=== PATIENT | female | born 1980 | race African-American/Black ===

== ENCOUNTER 2021-05-13 18:57 | Emergency (ER) | payer BC, SELFPAY ==
[2021-05-13 19:07] VITALS: BP 180/90; PULSE 100; RESP 18; TEMP 36.7; O2SAT 100; BMI 41.9
--- NOTE | 2021-05-13 22:18 | ED.GENADULT ---
HPI - General Adult General Chief complaint: General Medical Stated complaint: Alergic Reaction Time Seen by Provider: 05/13/21 21:53 Source: patient Mode of arrival: ambulatory History of Present Illness HPI narrative: 40-year-old female with history of hypertension presents with adverse reaction to Delta 8 gum he is that she purchased online. Patient states that she chronically has some difficulty with sleeping and was concerned that she may be ?addicted to Benadryl? so she was looking for a ?natural? method to manage her insomnia. She states that couple of hours after she took a single gummy she began feeling tingly and anxious throughout her entire body. Patient that she has gradually begun her and otherwise denies any fever, chills, GI or symptoms, chest pain/shortness of breath or facial/lip/tongue swelling. Related Data Previous Rx's Medication Instructions Recorded hydrochlorothiazide 25 mg tablet 25 mg PO DAILY #14 tab 05/13/21 Allergies Allergy/AdvReac Type Severity Reaction Status Date / Time No Known Allergies Allergy Verified 05/13/21 19:07 Review of Systems Review of Systems: Pertinent positives and negatives as stated in HPI 10 point review of systems is otherwise negative. PMFSH Past Medical History Source: nursing notes reviewed Medical History HTN (hypertension) Social History Social History Advance Directives: No Advance Directives Information Provided: Yes Physical Exam Vital Signs: Vital Signs: Last Vital Signs Temp 98.1 F 05/13/21 19:07 Pulse 100 05/13/21 19:07 Resp 18 05/13/21 19:07 BP 180/90 H 05/13/21 19:07 Pulse Ox 100 05/13/21 19:07 BMI result Body Mass Index 41.9 VITAL SIGNS: Reviewed. GENERAL: Well developed, well nourished, in no acute distress. HEAD: Normocephalic/atraumatic EYES: PERRLA, EOMI OROPHARYNX: no oral lesions noted, posterior pharynx clear, no facial/lips/ LUNGS: Normal breath sounds. No adventitious sounds or accessory muscle use. SpO2<100> CARDIOVASCULAR: Regular rate and rhythm without noted murmurs ABDOMEN: Soft, non-tender, non-distended with bowel sounds. SKIN: Inspection of the skin reveals no rashes NEUROLOGIC: Alert and oriented x 4. Strength and sensation to light touch were grossly intact x 4, no facial asymmetry, no pronator drift, cranial nerves 2-12 grossly intact. Course Course Course Narrative: 40-year-old female with history and clinical presentation consistent with adverse reaction to online medication meant to help sleep without concerns for airway/breathing/circulation at this time. Patient is noted to feel improved, had stated that she was running out of medication and was provided with hydrochlorothiazide (her prescribed medications) as well as a Benadryl. Patient is otherwise discharged home in stable condition with instructions to follow-up with primary care provider as scheduled for discussion regarding possible prescription for marijuana to assist her in sleep as well as renewal of her blood pressure medication. Discharge Plan Discharge Clinical Impression: Adverse effect of [id number] medication, Hypertension Patient Disposition: Home, Self-Care Instructions: Adverse Drug Reaction (ED), DASH Eating Plan (ED), Hypertension (ED) Additional Instructions: 1. Resume all home medications as prescribed. 2. Follow-up with your primary care provider as scheduled. Prescriptions: New hydrochlorothiazide 25 mg tablet 25 mg PO DAILY Qty: 14 0RF Referrals: Denisse Kowalski MD [Primary Care Provider] - 2 days
[2021-05-13] MEDS: diphenhydrAMINE HCL 25 MG TABLET PO (22:38)
[2021-05-13] MEDS: hydroCHLOROthiazide 25 MG TABLET PO (22:38)
[2021-05-13 23:24] VITALS: BP 146/88; PULSE 88; RESP 16; O2SAT 98
== END 2021-05-13 23:30 | disposition home or self-care (01) ==
PROVIDERS: Emergency Provider Student in an Organized Health Care Education/Training Program; PCP Internal Medicine
DX: L50.0 Allergic urticaria (principal); I10 Essential (primary) hypertension; Z79.899 Other long term (current) drug therapy
CPT/HCPCS: 99283; 99284; Q0163